=== PATIENT | male | born 1960 | race Hispanic/Latino ===

== ENCOUNTER → 2017-04-28 | Emergency (ER) | payer OTHER ==
[~2017-04-28] VITALS: Ht 170.2 cm; Wt 82.1 kg
[~2017-04-28] MED LIST: LACTULOSE20 GM/30 M PO; NORCO 5-325 TA1 EACH PO
== END | disposition left against medical advice (07) ==
LOC: ER 16:57
DX: R14.0 Abdominal distension (gaseous) (principal)

== ENCOUNTER → 2017-05-04 | Outpatient (CLI) | payer OTHER ==
--- NOTE | 2017-05-04 13:07 | Diagnostic Imaging Report ---
Ultrasound-guided paracentesis May 04, 2017 Pre-Procedure Diagnosis: Cirrhosis Post-procedure Diagnosis:Cirrhosis Shirt Marker: Randee Devries Apprentice Stylist: None Sedation: None. 1% lidocaine local anesthesia. Estimate blood loss: <5 mL Blood administered: None Complications: None Implants/Grafts: None Specimen: 900 mL ascites Procedure: Informed consent was obtained and the patient placed supine in the ultrasound suite. A time out was performed, followed by four-quadrant preliminary ultrasound of the abdomen. The right lower quadrant was prepped and draped in standard sterile fashion. Using real-time ultrasound guidance a 5-Colomb[place] one-step centesis needle was advanced into the peritoneal cavity. An image was stored in the electronic medical record. 1300 mL cloudy serous fluid was aspirated. At the end of the procedure the catheter was removed and a sterile dressing applied. The patient tolerated the procedure well. No complications. Findings: Small volume ascites. Impression: Successful ultrasound-guided paracentesis with removal of 1300 mL of ascites. Samples were submitted for evaluation if requested by the referring clinician. This report was generated with voice-recognition technology. Errors in electronics engineering professor can occur. Please interpret accordingly and contact a radiologist if there are any questions regarding the report. Signed by: Dr. Bienvenido Devries M.D. on 05/04/2017 1:04 PM
[2017-05-04 13:32] LABS: BODY FLUID APPEARANCE CLEAR; BODY FLUID COLOR YELLOW
[2017-05-04 13:33] LABS: RBC,BODY FLUID 213 cells/uL; WBC,BODY FLUID 200 cells/uL
[2017-05-04 16:49] LABS: LYMPHOCYTES,BODY FLUID 63 %; MONO/MACROPHG,BODY FLUID 31 %; NEUTROPHILS,BODY FLUID 5 %; OTHER CELLS,BODY FLUID 1 %
== END ==
LOC: US 10:55
PROVIDERS: ATTEND Internal Medicine Hepatology
DX: K74.69 Other cirrhosis of liver (principal); R18.8 Other ascites
CPT/HCPCS: 36415; 49083; 89051; C1729

== ENCOUNTER → 2017-06-27 | Outpatient (CLI) | payer OTHER | LOC: RAD 16:08 | PROVIDERS: ATTEND Family Medicine | DX: R60.9 Edema, unspecified (principal) | CPT/HCPCS: 93970 ==

== ENCOUNTER → 2017-07-25 | Outpatient (CLI) | payer OTHER ==
--- NOTE | 2017-07-25 14:44 | Diagnostic Imaging Report ---
PROCEDURE:US ABDOMEN LIMITED COMPARISON:None. INDICATIONS: Hyperbilirubinemia. Possible ascites. TECHNIQUE: Four quadrant grayscale ultrasound abdomen FINDINGS: No evidence of ascites. IMPRESSION: No evidence of ascites. Dictated by: Bienvenido Devries M.D. on 07/25/2017 at 14:45 Electronically approved by: Bienvenido Devries M.D. on 07/25/2017 at 14:45
--- NOTE | 2017-07-25 17:08 | Diagnostic Imaging Report ---
EXAM: Liver Duplex Ultrasound INDICATION: \[id number] \[id number] \S\ASCITES COMPARISON: None TECHNIQUE: Color Doppler and waveform spectral analysis were obtained of the hepatic vessels and TIPS. FINDINGS: No filling defects visualized on grayscale evaluation of the TIPS. On color Doppler images, there is hepatopedal flow within main portal vein. There is expected hepatofugal flow within the left portal vein and possibly right portal vein. 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 However, the velocities could not be measured along the TIPS, limiting evaluation. Recommend repeat ultrasound in 2-3 weeks to reevaluate the TIPS and velocities. Signed by: Dr. Shun Gomez MD on 07/25/2017 5:04 PM
== END | disposition home or self-care (01) ==
LOC: US 12:54
PROVIDERS: ATTEND Family Medicine
DX: R18.8 Other ascites (principal)
CPT/HCPCS: 76705; 93976

== ENCOUNTER → 2017-09-27 | Outpatient (CLI) | payer OTHER ==
--- NOTE | 2017-09-27 12:59 | Diagnostic Imaging Report ---
PROCEDURE:US ABDOMEN LIMITED COMPARISON:Abdominal ultrasound dated 07/25/17 INDICATIONS:ASCITES TECHNIQUE: Romero-scale and color doppler transverse and longitudinal images of the four quadrants of the abdomen were obtained. FINDINGS: See below. CONCLUSION: Trace ascites visualized in the abdomen. Dictated by: Shun Gomez M.D. on 09/27/2017 at 13:01 Electronically approved by: Shun Gomez M.D. on 09/27/2017 at 13:01
== END ==
LOC: US 12:08
PROVIDERS: ATTEND Family Medicine
DX: R18.8 Other ascites (principal)
CPT/HCPCS: 76705

== ENCOUNTER → 2017-10-17 | Outpatient (CLI) | payer OTHER | LOC: US 08:49 | PROVIDERS: ATTEND Internal Medicine Hepatology | DX: K74.69 Other cirrhosis of liver (principal); Z12.9 Encounter for screening for malignant neoplasm, site unspecified | CPT/HCPCS: 76700 ==

== ENCOUNTER → 2017-12-01 | Outpatient (CLI) | payer OTHER ==
--- NOTE | 2017-12-01 12:28 | Diagnostic Imaging Report ---
EXAM: Limited Abdominal Ultrasound Limited abdominal ultrasound with scanning in all 4 quadrants and the midline of the abdomen reveals a trace amount of free fluid. Fluid is not sufficient enough to warrant a paracentesis. Conclusion: Trace amount of free fluid in the abdomen. Gerald Schmidt D.O. Dictated by: Gerald Schmidt D.O. on 12/01/2017 at 12:33 Electronically approved by: Gerald Schmidt D.O. on 12/01/2017 at 12:33
== END ==
LOC: US 10:47
PROVIDERS: ATTEND Internal Medicine Hepatology
DX: R18.8 Other ascites (principal); K74.60 Unspecified cirrhosis of liver
CPT/HCPCS: 76705

== ENCOUNTER → 2018-01-04 | Outpatient (CLI) | payer OTHER ==
[~2018-01-04] MED LIST changes: +ALBUMIN 25% 12.5GM 200 ML IV ONE
[2018-01-04 09:18] LABS: INR 2.19; PROTHROMBIN TIME 22.9 seconds (11.9-14.5)
[2018-01-04 09:19] LABS: PARTIAL THROMBOPLASTIN TIME 38.3 seconds (23.8-35.5)
--- NOTE | 2018-01-04 11:14 | Diagnostic Imaging Report ---
PROCEDURE:US ABDOMEN LIMITED COMPARISON:None. INDICATIONS:ASCITES TECHNIQUE: Romero-scale ultrasound of the abdomen. FINDINGS: Preliminary ultrasound reveals a small amount of fluid in the right upper quadrant and right lower quadrant. The liver is small and nodular. Plan was to perform a low volume paracentesis, however review of preprocedural labs reveals an INR of 2.1 and a platelet count of 119,000. The patient is on no anticoagulation. Due to the small volume of fluid and the elevated INR paracentesis was not performed. CONCLUSION: Small volume abdominal fluid. Gerald Schmidt D.O. Dictated by: Gerald Schmidt D.O. on 01/04/2018 at 11:20 Electronically approved by: Gerald Schmidt D.O. on 01/04/2018 at 11:20
== END ==
LOC: US 07:52
PROVIDERS: ATTEND Internal Medicine Hepatology
DX: R18.8 Other ascites (principal); K74.69 Other cirrhosis of liver
CPT/HCPCS: 36415; 76705; 85049; 85610; 85730

== ENCOUNTER → 2018-01-12 | Outpatient (CLI) | payer OTHER ==
[~2018-01-12] MED LIST changes: -ALBUMIN 25% 12.5GM 200 ML IV ONE
--- NOTE | 2018-01-12 12:04 | Diagnostic Imaging Report ---
EXAM: CHEST 2 VIEWS, PA and lateral DATE: 01/12/2018 11:17 AM Time stamp on exam: 11:21 AM INDICATION: Pleural effusion COMPARISON: None FINDINGS: LINES/TUBES: None LUNGS: No consolidations or edema. PLEURA: Small left pleural effusion. HEART AND MEDIASTINUM: Normal size and contour. BONES AND SOFT TISSUES: No acute findings. Metallic embolization clips are noted beneath the diaphragm. IMPRESSION: Small left pleural effusion. Signed by: Dr. Gerald Schmidt DO on 01/12/2018 12:01 PM
== END ==
LOC: RAD 11:10
PROVIDERS: ATTEND Internal Medicine
DX: K76.9 Liver disease, unspecified (principal); J91.8 Pleural effusion in other conditions classified elsewhere; J98.11 Atelectasis
CPT/HCPCS: 71046